=== PATIENT | female | born 1970 | race American Indian/Alaskan Native ===

== ENCOUNTER 2017-06-29 12:46 | Outpatient (CLI) | payer OTHER ==
--- NOTE | 2017-06-30 13:20 | Magnetic Resonance Report ---
MRI of the left foot with and without contrast. History: Plantar fibroma. Findings: There is no evidence of a mass or abnormal enhancement along the plantar surface of the foot. The bony and tendinous structures appear normal treated there are no fractures or other acute findings. No evidence of joint effusion or other abnormal fluid collections. After contrast ministration, there is no evidence of abnormal enhancement. Impression: Normal study.
== END 2017-06-29 12:47 | disposition home or self-care (01) ==
LOC: MRI 12:46
DX: M72.2 Plantar fascial fibromatosis (principal)
CPT/HCPCS: 73720; A9577

== ENCOUNTER 2020-07-16 11:37 | Emergency (ER) | payer OTHER ==
[2020-07-16 11:53] VITALS: BP 126/77
== END 2020-07-16 15:54 | disposition left against medical advice (07) ==
LOC: ED 11:37
DX: R07.89 Other chest pain (principal); Z53.21 Procedure and treatment not carried out due to patient leaving prior to being seen by health care provider
CPT/HCPCS: 93005